=== PATIENT | female | born 1985 | race Caucasian/White ===

== ENCOUNTER → 2016-08-28 | Outpatient (CLI) | payer OTHER ==
--- NOTE | 2016-08-28 12:21 | DIAGNOSTIC IMAGING REPORT ---
CHEST 2 VIEWS ROUTINE CLINICAL HISTORY: CHEST WALL PAIN COMPARISON STUDY: 01/15/2008 FINDINGS: The cardiac and mediastinal contours are normal. There is no evidence of focal pulmonary consolidation. There is no evidence of failure. No pleural effusions are visualized.[ IMPRESSION: No active disease in the chest. Electronically signed by: Cole Coker M.D. 08/28/2016 12:19 PM Dictated Date/Time: 08/28/2016 12:18 PM
== END | disposition home or self-care (01) ==
LOC: C.RADPV 12:02
PROVIDERS: ATTEND Family Medicine
DX: R07.89 Other chest pain (principal)